=== PATIENT | male | born 1955 | race Caucasian/White ===

== ENCOUNTER 2018-08-11 09:51 | Day surgery (SDC) | payer OTHER ==
--- NOTE | 2018-08-09 14:56 | CPEKG ---
Test Reason : preop Blood Pressure : / mmHG Vent. Rate : 059 BPM Atrial Rate : 058 BPM P-R Int : 180 ms QRS Dur : 076 ms QT Int : 396 ms P-R-T Axes : 049 030 022 degrees QTc Int : 393 ms SINUS RHYTHM Confirmed by Porfirio Sparks ([id number]) on 08/09/2018 2:55:32 PM Referred By: Confirmed By:Porfirio Sparks
--- NOTE | 2018-08-10 18:41 | PDGENHP ---
History & Physical Chief Complaint: Right shoulder impingement syndrome, partial rotator cuff tear History of Present Illness: Baljeet is a pleasant 63 year old male with right shoulder: - tendinosis and fraying of the supraspinatus. - mild tendinosis of the infraspinatus. - long head biceps tendinosis. - nondisplaced tear of the superior labrum Pertinent Past, Social, Family History: PMH: migrains, sleep apnea. Social hisotry: current smoker. FH: non-contributory Relevant Physical Exam: The patient has 170 degrees of forward flexion, 60 degrees of external rotation, which is slightly less than the opposite nondominant side with internal rotation at T6. He has 5/5 strength internal rotation in biceps and triceps, but decrease in strength external rotation, supraspinatus and Speed test. He is nontender in the coracoid or the anterior glenohumeral joint. He is tender in the biceps groove, the anterior acromion, and the posterior glenohumeral joint, but not the AC joint. He has negative cross chest test and impingement pain to a FAIR test. Cardiorespiratory Assessment: RRR, CTAB
--- NOTE | 2018-08-11 07:16 | PDHPUP ---
History & Physical Update H&P update statement: This history and physical update is based on an assessment of the patient which was completed after admission or registration (within 24 hours), but prior to the surgery/procedure. H&P update: H&P reviewed & patient examined, no change in patient's condition since H&P completed
[2018-08-11] MEDS ORDERED: BUPIVACAINE/EPI 0.5% 30 ML SDV ONE ×2 (09:54→13:35)
[2018-08-11] MEDS ORDERED: EPINEPHrine 1 MG/ML INJ ONE ×2 (09:55→11:02)
[2018-08-11] MEDS ORDERED: ceFAZolin 2 GM/DEXTROSE 100 ML IV ONE (10:08)
[2018-08-11] MEDS ORDERED: LR 1,000 ML IV ONE (10:10)
[2018-08-11] MEDS ORDERED: LIDOCAINE 1% 2 ML INJ ID PRN (10:10)
[2018-08-11] MEDS ORDERED: ONDANSETRON 4 MG/2 ML VIAL ONE (10:49)
[2018-08-11] MEDS ORDERED: LIDOCAINE 2% 2 ML INJ ONE (10:49)
[2018-08-11] MEDS ORDERED: fentaNYL 250 MCG/5 ML INJ ONE (10:49)
[2018-08-11] MEDS ORDERED: DEXAMETHASONE 4 MG/ML VIAL ONE (10:49)
[2018-08-11] MEDS ORDERED: ROCURONIUM 50 MG/5 ML VIAL ONE (10:49)
[2018-08-11] MEDS ORDERED: MIDAZOLAM 2 MG/2 ML VIAL ONE (10:49)
[2018-08-11] MEDS ORDERED: PROPOFOL 200 MG/20 ML VIAL ONE (10:50)
[2018-08-11] MEDS ORDERED: ROPIVACAINE HCL 150 MG/30 ML INJ ONE (11:02)
[2018-08-11] MEDS ORDERED: HYDROmorphONE/DILAUDID 2 MG/ML INJ IVP PRN (12:05)
[2018-08-11] MEDS ORDERED: PHENYLEPHRINE HCL 100 MCG/ML SYR IVP PRN (12:05)
[2018-08-11] MEDS ORDERED: LR 500 ML IV PRN (12:05)
[2018-08-11] MEDS ORDERED: PROMETHAZINE HCL 25 MG/ML INJ IVP PRN (12:05)
[2018-08-11] MEDS ORDERED: oxyCODONE IR 5 MG TAB PO PRN (12:05)
[2018-08-11] MEDS ORDERED: METOCLOPRAMIDE 10 MG/2 ML VIAL IVP PRN (12:05)
[2018-08-11] MEDS ORDERED: NALOXONE HCL 0.4 MG/ML INJ IVP PRN (12:05)
[2018-08-11] MEDS ORDERED: fentaNYL 100 MCG/2 ML INJ IVP PRN (12:05)
[2018-08-11] MEDS ORDERED: ONDANSETRON 4 MG/2 ML VIAL IVP PRN (12:05)
[2018-08-11] MEDS ORDERED: MEPERIDINE 25 MG/0.5 ML AMP IVP PRN (12:05)
--- NOTE | 2018-08-11 12:05 | PDANEPAE ---
ANE Past Medical History - Cardiovascular History Hx Hypertension: No Hx Arrhythmias: No Hx Chest Pain: No Hx Coronary Artery / Peripheral Vascular Disease: No Hx CHF / Valvular Disease: No Hx Palpitations: No Cardiovascular History Comment: INTERMITTENT HIGH BLOOD PRESSURE - Pulmonary History Hx COPD: No Hx Asthma/Reactive Airway Disease: No Hx Recent Upper Respiratory Infection: No Hx Oxygen in Use at Home: No Hx Sleep Apnea: Yes Sleep Apnea Screening Result - Last Documented: Positive Pulmonary History Comment: DESHAUN USES C-PAP INSTRUCTED TO BRING DOS - Neurologic History Hx Cerebrovascular Accident: No Hx Seizures: No Hx Dementia: No - Endocrine History Hx Diabetes: No - Renal History Hx Renal Disorders: No - Liver History Hx Hepatic Disorders: No - Neurological & Psychiatric Hx Hx Neurological and Psychiatric Disorders: Yes Neurological / Psychiatric History Comment: MIGRAINES 4X YEAR - Cancer History Hx Cancer: No - Congenital Disorder History Hx Congenital Disorders: No - GI History Hx Gastrointestinal Disorders: No - Other Health History Other Health History: 02/2018 RT 2ND TOE CELLULITIS. NUMBNESS LT LEG POST LAMINECTOMY. LIMITED ROM RT SHLDR - Chronic Pain History Chronic Pain: Yes (RT SHLDR) - Surgical History Prior Surgeries: LUMBAR LAMINECTOMY X2. TONSILLECTOMY. TURP ANE Review of Systems Review of Systems: - Exercise capacity Exercise capacity: >=4 METS METS (RN): 2 METS ANE Patient History - Allergies Allergies/Adverse Reactions: No Known Allergies Allergy (Unverified 08/04/18 14:06) - Home Medications Home Medications: NK [No Known Home Meds] 08/04/18 [Last Taken Unknown] - NPO status NPO Since - Liquids (Date): 08/11/18 NPO Since - Liquids (Time): 06:30 NPO Since - Solids (Date): 08/10/18 NPO Since - Solids (Time): 20:50 - Smoking Hx Smoking Status: Current every day smoker - Family Anes Hx Family Hx Anesthesia Complications: NEG ANE Labs/Vital Signs - Vital Signs Blood Pressure: 170/105 Heart Rate: 64 Respiratory Rate: 12 O2 Sat (%): 95 Height: 172.72 cm Weight: 83.915 kg ANE Physical Exam - Airway Mallampati Score: Class 1 Mouth exam: normal dental/mouth exam - Pulmonary Pulmonary: no respiratory distress, no rales or rhonchi, clear to auscultation - Cardiovascular Cardiovascular: regular rate and rhythym, no murmur, rub, or gallop - ASA Status ASA Status: I ANE Anesthesia Plan Anesthesia Plan: general endotracheal anesthesia Regional Anesthesia: single shot NB
[2018-08-11] MEDS ORDERED: SUCCINYLCHOLINE CHLORIDE 200 MG/10 ML SYR IVP ONE (13:44)
[2018-08-11] MEDS ORDERED: ePHEDrine SULFATE 25 MG/5 ML SYR ONE (13:44)
[2018-08-11] MEDS ORDERED: SUGAMMADEX SODIUM 200 MG/2 ML VIAL IVP ONE (14:42)
[2018-08-11] MEDS ORDERED: ACETAMINOPHEN 325 MG TAB PO PRN (14:51)
[2018-08-11] MEDS ORDERED: HYDROCODONE/APAP 5/325 TAB PO PRN (14:51)
--- NOTE | 2018-08-11 14:51 | POSTOPPROG ---
Post Op Note Date of Operation: 08/11/18 Surgeon: Princess Madison Cyber Security Manager: [employer]train Anesthesia: LMA, Other (Specify) Pre-op Diagnosis: r shoulder impingement/rct/labral tear Procedure: r shoulder scope with rcr/sad/dce/debride bicep,labrum,rc,bursa Inf/Abcess present in the surg proc area at time of surgery?: No Depth: Deep Incisional (Fascial) EBL: 50-100
[2018-08-11 17:29] VITALS: BP 144/73
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
--- NOTE | 2018-08-12 09:02 | POSTANESTH ---
Post Anesthetic Evaluation Respiratory Status: Normal, Stable Level of Consciousness/Mental Status: Can Participate in Eval Pain Control: Adequate, Prn Tx Ordered Nausea/Vomiting Control: Adequate, Prn Tx Ordered Complications Possibly Related to Anesthesia: None Noted
== END 2018-08-11 17:24 | disposition home or self-care (01) ==
LOC: FSGY 09:51
PROVIDERS: ATTEND Orthopaedic Surgery
PROC: 0LQ14ZZ Repair Right Shoulder Tendon, Percutaneous Endoscopic Approach (ICD-10-PCS; principal; 2018-08-11 11:30)
PROC: 0MB14ZZ Excision of Right Shoulder Bursa and Ligament, Percutaneous Endoscopic Approach (ICD-10-PCS; principal; 2018-08-11 11:30)
PROC: 0RQ Upper Joints, Repair (ICD-10-PCS; principal; 2018-08-11 11:30)
PROC: 0PB94ZZ Excision of Right Clavicle, Percutaneous Endoscopic Approach (ICD-10-PCS; principal; 2018-08-11 11:30)
PROC: 0RNJ4ZZ Release Right Shoulder Joint, Percutaneous Endoscopic Approach (ICD-10-PCS; principal; 2018-08-11 11:30)
DX: M25.811 Other specified joint disorders, right shoulder (principal); M75.111 Incomplete rotator cuff tear or rupture of right shoulder, not specified as traumatic; M75.21 Bicipital tendinitis, right shoulder; R06.02 Shortness of breath; I10 Essential (primary) hypertension; G47.33 Obstructive sleep apnea (adult) (pediatric)
CPT/HCPCS: C1713; J0171; J0330; J0690; J1100; J2250; J2405; J2704; J2795; J3010